=== PATIENT | male | born 1970 | race Caucasian/White ===

== ENCOUNTER 2022-07-16 17:18 | Observation (INO) | payer OTHER ==
[~2022-07-16] VITALS: Ht 177.8 cm; Wt 132.0 kg
[2022-07-16] VITALS (10 sets, daily range): BP systolic 135–180; BP diastolic 59–98
[2022-07-16] MEDS ORDERED: LIPITOR10 M1 PO (17:52)
[2022-07-16] MEDS ORDERED: PAROXETINE20 MG PO (17:53)
[2022-07-16] MEDS ORDERED: LISINOPRIL10 MG PO (17:53)
[2022-07-16] MEDS ORDERED: HYDROCHLOROT25 MG PO (17:54)
[2022-07-16 18:25] LABS: BASO% 0.1 % (0-3); EOS% 0.1 % (0-8); HEMATOCRIT 43.8 % (39.0-50.0); HEMOGLOBIN 14.4 g/dl (14.0-18.0); IMMATURE GRANULOCYTES 0.4 % (0.0-5.0); LYMPH% 6.9 % (15-41); MEAN CELL VOLUME 87.6 fL CALC (80.0-100.0); MEAN CORPUSCULAR HGB 28.8 pG CALC (26.0-32.0); MEAN CORPUSCULAR HGB CONC 32.9 g/dL CAL (32.0-36.0); MONO% 8.2 % (2-13); NEUT# 17.86 thou/uL (1.82-7.42); NEUT% 84.3 % (42-76); RED CELL DISTRI WIDTH 12.6 % (11.5-15.5)
[2022-07-16 18:29] LABS: ALBUMIN 4.6 g/dL (3.2-5.0); ALKALINE PHOSPHATASE 73 u/l (38-126); ANION GAP 13 (6-22 (CALC)); BILIRUBIN, TOTAL 0.7 mg/dL (0.2-1.3); BUN 19 mg/dL (9-20); BUN/CREATININE RATIO 23 (12-20 (CALC)); CARBON DIOXIDE 24 mmol/l (22-30); CHLORIDE 100 mmol/l (95-108); CREATININE 0.8 mg/dL (0.7-1.3); GFR FOR AFR.AMER. > 60 ML/MIN (>=60 (CALC)); GFR OTHER RACES > 60 ML/MIN (>=60 (CALC)); LIPASE 64 u/l (23-300); POTASSIUM 4.2 mmol/l (3.5-5.1); SGOT/AST 30 u/l (17-59); SODIUM 133 mmol/l (137-146)
[2022-07-16 18:54] LABS: URINE BILIRUBIN - DIPSTICK NEGATIVE (NEGATIVE); URINE BLOOD DIPSTICK NEGATIVE (NEGATIVE); URINE COLOR YELLOW; URINE GLUCOSE - DIPSTICK NEGATIVE (NEGATIVE); URINE KETONE 15 mg/dL (NEGATIVE); URINE LEUK ESTERASE NEGATIVE (NEGATIVE); URINE PH 7.5 (4.5-8.0); URINE PROTEIN - DIPSTICK NEGATIVE (NEG-TRACE); URINE UROBILINOGEN - DIPSTICK 0.2 E.U./dL (0.2)
[2022-07-16 18:55] LABS: URINE NITRITE - DIPSTICK NEGATIVE (Negative)
[2022-07-17] VITALS (17 sets, daily range): BP systolic 112–158; BP diastolic 51–94
[2022-07-18 04:33] VITALS: BP 153/72
[2022-07-18 08:00] VITALS: BP 153/72
[2022-07-18 09:30] LABS: MEAN CELL VOLUME 90.3 fL CALC (80.0-100.0); MEAN CORPUSCULAR HGB 29.4 pG CALC (26.0-32.0); MEAN CORPUSCULAR HGB CONC 32.6 g/dL CAL (32.0-36.0); RED BLOOD COUNT 4.11 mill/uL (4.70-6.10); RED CELL DISTRI WIDTH 12.7 % (11.5-15.5)
[2022-07-18 09:31] LABS: HEMATOCRIT 37.1 % (39.0-50.0); HEMOGLOBIN 12.1 g/dl (14.0-18.0)
[2022-07-18 12:00] VITALS: BP 153/72
== END 2022-07-18 14:10 | disposition designated cancer center or children's hospital (05) | DRG 343 ==
LOC: ED 17:18 → ED-I 18:31 → ED 18:31 → MS2 19:42
PROVIDERS: Nurse Practitioner; ADMIT Surgery; ATTEND Surgery
PROC: 0DTJ4ZZ Resection of Appendix, Percutaneous Endoscopic Approach (ICD-10-PCS; principal; 2022-07-17)
DX: K35.30 Acute appendicitis with localized peritonitis, without perforation or gangrene (principal); I10 Essential (primary) hypertension; K42.9 Umbilical hernia without obstruction or gangrene; Z20.822 Contact with and (suspected) exposure to COVID-19
CPT/HCPCS: G0378; J0131; Q9967